=== PATIENT | female | born 2000 | race Caucasian/White ===

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

== ENCOUNTER 2019-04-25 09:57 | Emergency (ER) | payer OTHER ==
[2019-04-25 10:19] VITALS: BP 106/71
--- NOTE | 2019-04-25 10:49 | UC ---
Complaint Female HPI - HPI Summary HPI Summary: 18 year old female with no PMH presents with external genitalia burning with urination, incontinence with full bladder, vaginal discharge (thick, brown/ spotting), abdominal cramping similar to menses but more severe than in past. Denies itching, odor, fever, chills, urinary frequency/ urgency. + fatigue. Was sexually active 2 years ago, none currently. No PAP exam. + OCP- sprintec , for hormonal regulation. Patient states she has had missed days of her OCP, and taken double doses on other days to make up. - History Of Current Complaint Chief Complaint: UCGU Stated Complaint: URINARY COMPLAINT Time Seen by Provider: 04/25/19 10:48 Hx Obtained From: Patient, Family/Bdr - mother Hx Last Menstrual Period: 03/26/19 ?: No Onset/Duration: Sudden Onset, Lasting Days - 4-5 days Timing: Intermittent Severity Initially: Moderate Severity Currently: Moderate Pain Intensity: 6 Pain Scale Used: 0-10 Numeric Character: Sharp - lower abdomen Associated Signs And Symptoms: Positive: Negative, Vaginal Bleeding/Discharge, Vaginal Discharge. Negative: Fever, Back Pain, Genital Swelling, Genital Blisters - Allergies/Home Medications Allergies/Adverse Reactions: Allergies Allergy/AdvReac Type Severity Reaction Status Date / Time Sulfa (Sulfonamide Allergy Unknown Verified 04/25/19 10:13 Antibiotics) Reaction Details PMH/Surg Hx/FS Hx/Imm Hx Previously Healthy: Yes Other History Of: Negative For: Anticoagulant Therapy - Surgical History Surgical History: Yes Surgery Procedure, Year, and Place: T&A 2007 - Family History Known Family History: Positive: Hypertension, Diabetes, Other - High cholesterol - Social History Alcohol Use: None Substance Use Type: None Smoking Status (MU): Never Smoked Tobacco Have You Smoked in the Last Year: No - Immunization History Most Recent Influenza Vaccination: fall 2016 Most Recent Tetanus Shot: up to date Most Recent Pneumonia Vaccination: never Vaccination Up to Date: Yes Review of Systems All Other Systems Reviewed And Are Negative: Yes Constitutional: Positive: Fatigue. Negative: Fever, Chills Respiratory: Negative: Shortness Of Breath, Cough Genitourinary: Positive: Vaginal/Penile Burning, Vaginal/Penile Discharge, Vaginal/Penile Pain, Vaginal/Penile Tenderness. Negative: Frequency, Urgency, Vaginal/Penile Itching, Ulceration/Lesion, Abnormal Bleeding Is Patient Immunocompromised?: No Physical Exam Triage Information Reviewed: Yes Appearance: Well-Appearing, No Pain Distress, Well-Nourished Vital Signs: Initial Vital Signs Temp 98.3 F 04/25/19 10:15 Pulse 90 04/25/19 10:15 Resp 16 04/25/19 10:15 BP 106/71 04/25/19 10:15 Pulse Ox 99 04/25/19 10:15 Vital Signs Reviewed: Yes Eyes: Positive: Conjunctiva Clear Abdomen Description: Positive: No Organomegaly, Soft, Other: - TTP over RLQ, LLQ. Negative: CVA Tenderness (R), CVA Tenderness (L), Distended, Guarding Pelvic Exam: Positive: External Exam Normal, No Masses, Active Bleeding - brown streaks seen, not active bleeding, Tender Adnexa - moderate, worse L>R, Tender Uterus - minimal. Negative: Blood, Discharge, Lesions, Mass, Tender w/ Cervical Motion Musculoskeletal Exam: Normal Neurological: Positive: Alert Psychological Exam: Normal Psychological: Positive: Normal Response To Family Skin Exam: Normal Complaint Female Dx - Course Course Of Treatment: Pelvic exam for STD, cultures. Urine cultures sent. Transvag US: Negative - Follow up with Ob/ DIRECTOR HOSPICE OPERATIONS within 2-3 weeks for PAP exam/ vaginal exam - Cultures taken for urine, STD, BV, Yeast- results within 1-2 days - Go to ER with increased pain, fever > 101, increased vaginal discharge. - Toradol as needed for pain, cramping every 8 hours. Do NOT take with motrin, may take with tylenol. - Differential Dx/Diagnosis Differential Diagnosis/HQI/PQRI: Pelvic Inflammatory Disease, Sexually Transmitted Disease, Urinary Tract Infection Provider Diagnosis: Pelvic pain Discharge ED - Sign-Out/Discharge Documenting (check all that apply): Patient Departure All imaging exams completed and their final reports reviewed: Yes - Discharge Plan Condition: Good Disposition: HOME Prescriptions: Ketorolac TAB * [Toradol TAB *] 10 mg PO Q8H #12 tab Patient Education Materials: Pelvic Pain in Women (ED) Referrals: Prateek Vines MD [Primary Care Provider] - Juanjose Ny MD [Medical Doctor] - Mikki Rich MD [Medical Doctor] - Additional Instructions: - Follow up with Ob/ DIRECTOR HOSPICE OPERATIONS within 2-3 weeks for PAP exam/ vaginal exam - Cultures taken for urine, STD, BV, Yeast- results within 1-2 days - Go to ER with increased pain, fever > 101, increased vaginal discharge. - Toradol as needed for pain, cramping every 8 hours. Do NOT take with motrin, may take with tylenol. - Billing Disposition and Condition Condition: GOOD Disposition: Home
[2019-04-25] MEDS ORDERED: Ibuprofen TAB* 600 MG PO ONE (12:26)
[2019-04-26 12:48] LABS: Chlamydia trachomatis NAA Negative (Negative); Neisseria gonorrhoeae (GC) NAA Negative (Negative)
== END 2019-04-25 12:54 | disposition home or self-care (01) ==
LOC: UCEAST 09:57
DX: R30.0 Dysuria (principal); R10.2 Pelvic and perineal pain; Z88.2 Allergy status to sulfonamides
CPT/HCPCS: 76830; 81003; 84702; 87086; 87480; 87491; 87510; 87591; 99212; A9270-GY; G0463

== ENCOUNTER 2020-09-21 07:16 | Inpatient (IN) ==
[2020-09-21] MEDS ORDERED: NS 0.9% 1000 ml BAG 1,000 ML IV ONE ×3 (07:25→08:39)
[2020-09-21 07:54] LABS: ABS Lymphocytes 1.4 10^3/ul (1.0-4.8); ABS Monocytes 0.5 10^3/ul (0-0.8); ABS Neutrophils 7.4 10^3/ul (1.5-7.7); Eosinophil % 0.3 %; Hematocrit 34 % (35-47); Hemoglobin 11.2 g/dL (12.0-16.0); Lymphocyte % 14.6 %; Mean Corpuscular HGB Conc 33 g/dL (31-36); Mean Corpuscular Hemoglobin 31 pg (27-31); Mean Corpuscular Volume 93 fL (80-97); Mean Platelet Volume 7.7 fL (7.4-10.4); Platelet Count 269 10^3/uL (150-450); Red Blood Count 3.61 10^6 /uL (3.70-4.87); Red Cell Distribution Width 13 % (10-15); White Blood Count 9.3 10^3/uL (3.5-10.8)
[2020-09-21 08:10] LABS: ALT 10 U/L (7-52); AST 12 U/L (13-39); Albumin 3.8 g/dL (3.2-5.2); Albumin/Globulin Ratio 1.3 (1-3); Alkaline Phosphatase 43 U/L (34-104); Anion Gap 10 mmol/L (2-11); BUN/Creatinine Ratio 9.1 (8-20); Blood Urea Nitrogen 7 mg/dL (6-24); CO2 Carbon Dioxide 19 mmol/L (22-32); Calcium 8.1 mg/dL (8.6-10.3); Chloride 107 mmol/L (101-111); Creatine Kinase 45 U/L (10-223); EGFR African American 114.5 (>60); EGFR Non-African American 94.6 (>60); Globulin 2.9 g/dL (2-4); Glucose 184 mg/dL (70-100); Potassium 3.4 mmol/L (3.5-5.0); Sodium 136 mmol/L (135-145); Total Protein 6.7 g/dL (6.4-8.9)
[2020-09-21 08:14] LABS: Troponin I 0.01 ng/mL (<0.03)
[2020-09-21 08:38] LABS: Acetaminophen < 15 mcg/mL; Alcohol, S < 10 mg/dL (<10); Salicylate < 2.50 mg/dL (<30)
[2020-09-21] MEDS ORDERED: LORazepam 2 mg VIAL 1 ml IV PUSH ONE ×3 (08:40→16:34)
[2020-09-21] MEDS ORDERED: Lorazepam PYXIS KEY PRN ×4 (08:40→13:54)
[2020-09-21 08:44] LABS: Urine Appearance Clear; Urine Bilirubin Negative (Negative); Urine Blood Negative (Negative); Urine Color Straw; Urine Glucose 1+(50 mg/dL) (Negative); Urine Ketones Trace (Negative); Urine Nitrite Negative (Negative); Urine Protein Negative (Negative); Urine Urobilinogen Negative (Negative)
[2020-09-21] MEDS ORDERED: Lorazepam PYXIS KEY ONE ×3 (08:45→10:52)
[2020-09-21 08:53] LABS: TSH Ultra Thyroid Stim Horm 1.87 mcIU/mL (0.34-5.60)
[2020-09-21 09:00] LABS: Urine Benzodiazepine Screen None Detected (None Detect); Urine Cannabinoids Screen None Detected (None Detect); Urine Opiates Screen None Detected (None Detect)
[2020-09-21] MEDS ORDERED: LORazepam 2 mg VIAL 1 ml IV PUSH PRN ×2 (09:33→12:49)
[2020-09-21 10:20] LABS: Magnesium 1.5 mg/dL (1.9-2.7); Phosphorus 2.2 mg/dL (2.5-5.0)
[2020-09-21] MEDS: NORMOSOL-R pH 7.4 1000 mL BAG 1,000 ML IV SCH ×2 (10:48→18:54)
[2020-09-21] MEDS ORDERED: Magnesium Sulf 4 GM/100 ML IV 4,000 MG/100 ML BAG IVPB ONE (11:00)
[2020-09-21] MEDS: KCL 20 MEQ/100 ML IVPREMIX 20 MEQ/100 ML BAG IV SCH ×2 (11:56→14:25)
[2020-09-21] MEDS ORDERED: Potassium Phosphate IV 15 MMOLE in NS 0.9% 250 ml 250 ML IVPB ONE (12:00)
[2020-09-21] MEDS: LORazepam 2 mg VIAL 1 ml IV PUSH PRN ×2 (14:30→19:39)
[2020-09-21 15:39] LABS: HCG Pregnancy < 0.60 mIU/mL
[2020-09-21] MEDS: Pantoprazole VIAL 40 MG VIAL IV SCH (16:32)
[2020-09-21] MEDS ORDERED: Hydrocortisone INJ 100 MG/2ML 2 ML VIAL ONE (16:48)
[2020-09-21 20:43] LABS: ALT 14 U/L (7-52); AST 20 U/L (13-39); Albumin 4.2 g/dL (3.2-5.2); Albumin/Globulin Ratio 1.4 (1-3); Alkaline Phosphatase 44 U/L (34-104); Anion Gap 9 mmol/L (2-11); BUN/Creatinine Ratio 4.7 (8-20); Blood Urea Nitrogen 3 mg/dL (6-24); CO2 Carbon Dioxide 20 mmol/L (22-32); Calcium 8.7 mg/dL (8.6-10.3); Chloride 108 mmol/L (101-111); EGFR African American 141.7 (>60); EGFR Non-African American 117.1 (>60); Globulin 2.9 g/dL (2-4); Glucose 97 mg/dL (70-100); Magnesium 2.5 mg/dL (1.9-2.7); Phosphorus 2.5 mg/dL (2.5-5.0); Potassium 4.3 mmol/L (3.5-5.0); Sodium 137 mmol/L (135-145); Total Protein 7.1 g/dL (6.4-8.9)
[2020-09-21 20:58] LABS: HCG Pregnancy < 0.60 mIU/mL
[2020-09-21] MEDS ORDERED: Rocuronium 50 mg VIAL 10 mg/ml 5 ml VIAL (50 mg) ONE (22:32)
[2020-09-22] MEDS: NORMOSOL-R pH 7.4 1000 mL BAG 1,000 ML IV SCH ×3 (03:35→19:58)
[2020-09-22] MEDS: LORazepam 2 mg VIAL 1 ml IV PUSH PRN (03:40)
[2020-09-22 04:35] LABS: ABS Lymphocytes 1.8 10^3/ul (1.0-4.8); ABS Monocytes 1.1 10^3/ul (0-0.8); Eosinophil % 0.2 %; Hematocrit 37 % (35-47); Hemoglobin 12.6 g/dL (12.0-16.0); Lymphocyte % 13.9 %; Mean Corpuscular HGB Conc 34 g/dL (31-36); Mean Corpuscular Hemoglobin 31 pg (27-31); Mean Corpuscular Volume 92 fL (80-97); Mean Platelet Volume 7.5 fL (7.4-10.4); Platelet Count 259 10^3/uL (150-450); Red Blood Count 4.02 10^6 /uL (3.70-4.87); Red Cell Distribution Width 13 % (10-15)
[2020-09-22 04:43] LABS: INR 1.1 (0.82-1.09)
[2020-09-22 04:53] LABS: BUN/Creatinine Ratio 6.3 (8-20); EGFR African American 141.7 (>60); EGFR Non-African American 117.1 (>60); Magnesium 2.3 mg/dL (1.9-2.7); Phosphorus 2.8 mg/dL (2.5-5.0); Potassium 4.3 mmol/L (3.5-5.0)
[2020-09-22] MEDS ORDERED: Pantoprazole VIAL 40 MG VIAL IV SCH (09:00)
[2020-09-22] MEDS: Pantoprazole VIAL 40 MG VIAL IV SCH (09:09)
[2020-09-23] MEDS ORDERED: Benzocaine/Menthol LOZ MT PRN (02:32)
[2020-09-23] MEDS: NORMOSOL-R pH 7.4 1000 mL BAG 1,000 ML IV SCH (04:03)
[2020-09-23] MEDS: Pantoprazole VIAL 40 MG VIAL IV SCH (09:37)
[2020-09-23] MEDS ORDERED: Al Hydrox/Mg Hydrox/Simet LIQ 30 ML UDC PO PRN (11:41)
[2020-09-23] MEDS: Vitamin THERAPEUTIC TAB PO SCH (15:24)
[2020-09-24 06:06] LABS: HDL Cholesterol 62.3 mg/dL
[2020-09-24 07:45] LABS: ABS Basophils 0.1 10^3/ul (0-0.2); ABS Eosinophils 0.2 10^3/ul (0-0.6); ABS Lymphocytes 1.6 10^3/ul (1.0-4.8); ABS Monocytes 0.6 10^3/ul (0-0.8); ABS Neutrophils 6.4 10^3/ul (1.5-7.7); Eosinophil % 2.2 %; Hematocrit 37 % (35-47); Hemoglobin 12.3 g/dL (12.0-16.0); Lymphocyte % 18.3 %; Mean Corpuscular HGB Conc 34 g/dL (31-36); Mean Corpuscular Hemoglobin 31 pg (27-31); Mean Corpuscular Volume 91 fL (80-97); Platelet Count 284 10^3/uL (150-450); Red Blood Count 4.03 10^6 /uL (3.70-4.87); Red Cell Distribution Width 13 % (10-15); White Blood Count 8.9 10^3/uL (3.5-10.8)
[2020-09-24] MEDS: Vitamin THERAPEUTIC TAB PO SCH (09:35)
[2020-09-24 10:29] LABS: Calcium 9.5 mg/dL (8.6-10.3); Potassium 4.2 mmol/L (3.5-5.0)
[2020-09-24 10:35] LABS: EGFR Non-African American 107.4 (>60)
[2020-09-24] MEDS ORDERED: NS 0.9% 500 ml BAG 500 ML IV ONE (11:00)
[2020-09-25] MEDS: CMCS:Vortioxetine 10 mg TAB (NF) PO SCH (08:01)
[2020-09-25] MEDS: Vitamin THERAPEUTIC TAB PO SCH (08:04)
[2020-09-26] MEDS: CMCS:Vortioxetine 10 mg TAB (NF) PO SCH (08:21)
[2020-09-26] MEDS: Vitamin THERAPEUTIC TAB PO SCH (08:21)
[2020-09-26 09:38] VITALS: BP 115/72
== END 2020-09-26 15:00 | disposition home or self-care (01) | DRG 812 ==
LOC: ED 07:16 → ICU 09:27 → MEDTELE 09-23 10:55 → BSU 09-24 13:09
PROVIDERS: ADMIT Internal Medicine; ATTEND Psychiatry & Neurology Psychiatry

== ENCOUNTER 2024-02-20 07:36 | Inpatient (IN) ==
[2024-02-20] MEDS ORDERED: LORazepam 2 mg VIAL 1 ml IV PUSH PRN ×2 (08:44)
[2024-02-20] MEDS ORDERED: Albuterol HFA INHALER 8 gm MDI INH PRN (08:54)
[2024-02-21] MEDS: VORTIOXETINE 5 MG PO SCH (09:35)
[2024-02-22 08:40] VITALS: BP 116/69
[2024-02-22] MEDS: Ondansetron ODT 4 mg TAB 4 MG TAB PO ONE (09:10)
== END 2024-02-22 15:11 | disposition home or self-care (01) | DRG 756 ==
LOC: MEDTELE 07:36
PROVIDERS: ADMIT Psychiatry & Neurology Neurology; ATTEND Internal Medicine